=== PATIENT | male | born 1955 | race Caucasian/White ===

== ENCOUNTER 2017-12-28 13:57 | Emergency (ER) | payer OTHER | END 2017-12-28 15:09 | disposition home or self-care (01) | LOC: E/R 13:57 | DX: M25.561 Pain in right knee (principal) | CPT/HCPCS: 73562; 99283-25 ==

== ENCOUNTER 2018-05-02 06:43 | Emergency (ER) | payer OTHER | END 2018-05-02 08:34 | disposition home or self-care (01) | LOC: FTE 06:43 | DX: M25.512 Pain in left shoulder (principal) | CPT/HCPCS: 73030; 73060; 99283-25 ==